=== PATIENT | male | born 1945 ===

== ENCOUNTER 2018-03-08 06:43 | Outpatient (CLI) | payer OTHER ==
[~2018-03-08 06:43] MED LIST: CIPRO500 MG PO; COZAAR50 MG; METFORMIN HCL500 MG; NABUMETONE500 MG PO; OSEL75CA PO; PERCOCET 5/3251 TAB PO; TAMS0.4C PO; TUSSI PRES-B L120 M1 PO; ULTRACET PO
== END 2018-03-08 06:52 | disposition home or self-care (01) ==
LOC: LAB 06:43 → RAD 06:43
DX: E11.9 Type 2 diabetes mellitus without complications (principal)

== ENCOUNTER → 2018-03-16 | Day surgery (SDC) | payer OTHER ==
[~2018-03-16] MED LIST changes: +LANTUS SOL100 UNIT/1
== END | disposition home or self-care (01) ==
LOC: CIR.AMB 07:53
DX: N43.2 Other hydrocele (principal)

== ENCOUNTER 2018-10-27 12:26 | Outpatient (CLI) | payer OTHER | END 2018-10-27 12:48 | disposition home or self-care (01) | LOC: RAD 12:26 | DX: M25.562 Pain in left knee (principal); M25.561 Pain in right knee | CPT/HCPCS: 73721 ==

== ENCOUNTER 2020-05-21 08:29 | Emergency (ER) | payer OTHER ==
[~2020-05-21] VITALS: Ht 165.1 cm; Wt 82.6 kg
[2020-05-21] MEDS ORDERED: ZESTRIL10 M1 PO ×2 (08:42→08:46)
[2020-05-21] MEDS ORDERED: HYDROCHLOROTHIA25 MG PO (08:43)
[2020-05-21] MEDS ORDERED: FENOFIBRATE145 MG PO (08:43)
[2020-05-21] MEDS ORDERED: NOXIFOL-D32500 UNIT PO (08:44)
[2020-05-21] MEDS ORDERED: ZOCOR40 MG PO (08:44)
[2020-05-21] MEDS ORDERED: FARXIGA5 MG PO (08:45)
[2020-05-21] MEDS ORDERED: FORTAMET500 MG PO (08:45)
[2020-05-21] MEDS ORDERED: COZAAR100 MG PO (08:45)
[2020-05-21] MEDS ORDERED: NORFLEX100MG PO (13:41)
== END 2020-05-21 13:44 | disposition home or self-care (01) ==
LOC: ER 08:29
DX: M54.2 Cervicalgia (principal); R10.13 Epigastric pain; Z03.818 Encounter for observation for suspected exposure to other biological agents ruled out